=== PATIENT | male | born 1985 | race Caucasian/White ===

== ENCOUNTER 2018-05-11 18:43 | Emergency (ER) | payer SELFPAY ==
[2018-05-11 19:08] VITALS: BP 132/82; PULSE 60; RESP 18; TEMP 98.3; O2SAT 100
[2018-05-11] MEDS ORDERED: PROPARACAINE/FLUORESCEIN SOD 100 DROP/5 ML BOTTLE OU STA (19:11)
--- NOTE | 2018-05-11 19:18 | ED PDOC ---
HPI: Eye Injury/Pain Time Seen by Provider: 05/11/18 19:11 Chief Complaint (Nursing): Eye Problem Chief Complaint (Provider): Left Eye Pain History Per: Patient, Other (Patient's girlfriend at bedside is translating Danish.) History/Exam Limitations: no limitations Current Symptoms Are (Timing): Still Present Additional Complaint(s): 33 year old male presents to the ED for evaluation of left eye pain, redness, and foreign body sensation s/p cutting wood at work earlier today. Patient was not wearing glasses while doing this work. He is not sure if FB is still in his eye. Patient states tetanus is up to date PMD: none Past Medical History Reviewed: Historical Data, Nursing Documentation, Vital Signs Vital Signs: Last Vital Signs Temp 98.3 F 05/11/18 19:06 Pulse 60 05/11/18 19:06 Resp 18 05/11/18 19:06 BP 132/82 05/11/18 19:06 Pulse Ox 100 05/11/18 19:06 - Medical History PMH: No Chronic Diseases - Surgical History Surgical History: No Surg Hx - Family History Family History: States: No Known Family Hx - Living Arrangements Living Arrangements: With Family - Social History Current smoker - smoking cessation education provided: No Alcohol: None Drugs: Denies - Immunization History Hx Tetanus Toxoid Vaccination: Yes - Home Medications Home Medications: Ambulatory Orders Medication Instructions Recorded Azithromycin [Zithromax Z-Sotero] 250 mg PO DAILY #6 tab 06/05/15 Chlorpheniramine Maleate [Diabetic 2 mg PO Q8 06/05/15 Tussin] Ibuprofen [Motrin] 600 mg PO Q6H PRN #20 tab 06/05/15 Fexofenadine/Pseudoephedrine 1 ter PO BID #30 ter 06/21/15 [Shayla-D 12 Hour Allergy & Congestion 60 mg-] Tobramycin [Tobrex] 5 ml TOP QID #1 bottle 05/11/18 - Allergies Allergies/Adverse Reactions: Allergies Allergy/AdvReac Type Severity Reaction Status Date / Time No Known Allergies Allergy Verified 05/11/18 19:06 Review of Systems ROS Statement: Except As Marked, All Systems Reviewed And Found Negative Eyes: Positive for: Other (left eye pain, redness and Fb sensation) Neurological: Negative for: Headache, Dizziness Physical Exam - Reviewed Nursing Documentation Reviewed: Yes Vital Signs Reviewed: Yes - Physical Exam Appears: Positive for: Well, Non-toxic, No Acute Distress Head Exam: Positive for: ATRAUMATIC, NORMOCEPHALIC Skin: Positive for: Normal Color. Negative for: Rash Eye Exam: Positive for: EOMI, PERRL, Conjunctival injection (moderate to left eye with no gross FB) Neurologic/Psych: Positive for: Alert, Oriented - ECG O2 Sat by Pulse Oximetry: 100 (RA) Pulse Ox Interpretation: Normal Medical Decision Making Medical Decision Making: Time: 1910 Impression: 33 year old male with left eye FB sensation Procedure Note: 2 drops flucaine applied to left eye, examination with UV light demonstrates no foreign body to cornea or upon lid eversion. Uptake noted at 7:00 consistent with corneal abrasion. Procedure was tolerated well by patient, no complications. Patient given prescription for tobramycin eyedrops. Advised NSAIDs for pain. He was referred to ophthalmology on-call for follow-up. Scribe Attestation: Documented by Nela Ritter, acting as a scribe for Ysabel Ji PA-C. Provider Scribe Attestation: All medical record entries made by the Scribe were at my direction and personally dictated by me. I have reviewed the chart and agree that the record accurately reflects my personal performance of the history, physical exam, medical decision making, and the department course for this patient. I have also personally directed, reviewed, and agree with the discharge instructions and disposition. Disposition - Clinical Impression Clinical Impression: Corneal abrasion - Patient ED Disposition Is Patient to be Admitted: No Counseled Patient/Family Regarding: Studies Performed, Diagnosis, Need For Followup, Rx Given - Disposition Referrals: Luca Cruz MD [Staff Provider] - Disposition: Routine/Home Disposition Time: 19:35 Condition: STABLE Additional Instructions: Apply drops as directed. [id number] ibuprofen for pain as needed. Follow- up with legal support specialist in 2-3 days Prescriptions: Tobramycin [Tobrex] 5 ml TOP QID #1 bottle Instructions: Corneal Abrasion (DC) Forms: [facility] (Danish), [facility] ED School/Work Excuse Print Language: MACEDONIAN
== END 2018-05-11 19:51 | disposition home or self-care (01) ==
LOC: H.ER 18:43
DX: S05.00XA Injury of conjunctiva and corneal abrasion without foreign body, unspecified eye, initial encounter (principal); Y99.0 Civilian activity done for income or pay